=== PATIENT | male | born 1975 | race Caucasian/White ===

== ENCOUNTER 2020-04-11 17:33 | Emergency (ER) | payer MEDICAID ==
[~2020-04-11] VITALS: Ht 177.8 cm; Wt 91.2 kg
--- NOTE | 2020-04-11 17:42 | NUR ---
EKG DONE IN TRIAGE
--- NOTE | 2020-04-11 17:58 | NUR ---
[place] RN: PT C/O CHEST PAIN WHEN HE COUGHS. PT WAS TESTED FOR COVID X3 WEEKS AGO. [employer] ON. NSR NOTED. PT SEEN BY DR GARZA. NO ACUTE DISTRESS NOTED. VS STABLE. CALL LIGHT IN PLACE. REPORT GIVEN TO MICHAEL VASQUEZ
[2020-04-11 18:23] LABS: BASOPHILS % (AUTO) 0 % (0-1); EOSINOPHILS % (AUTO) 5 % (1-7); LYMPHOCYTES % (AUTO) 23 % (22-44); MEAN CORPUSCULAR HEMOGLOBIN 30.4 pg (27.5-34.5); MEAN CORPUSCULAR HGB CONC 34.2 g/dL (33.2-36.2); MEAN PLATELET VOLUME 7.9 fL (7.4-10.4); MONOCYTES % (AUTO) 8 % (2-9); NEUTROPHILS % (AUTO) 64 % (42-75); PLATELET COUNT 189 x10^3/uL (130-400); RED CELL DISTRIBUTION WIDTH 13.3 % (9.4-14.8)
[2020-04-11 18:24] LABS: MD NO
[2020-04-11] MEDS ORDERED: ALBUTEROL SULFATE 2.5 MG/3 ML NPPB ONE (18:30)
[2020-04-11 18:31] LABS: ALBUMIN 3.9 g/dL (3.4-5.0); ANION GAP 6 mmol/L (5-15); CALCIUM 8.7 mg/dL (8.5-10.1); CHLORIDE 109 mmol/L (98-107); CREATININE 1.04 mg/dL (0.7-1.3)
[2020-04-11 18:35] LABS: TROPONIN I < 0.015 ng/mL (0.000-0.045)
[2020-04-11] MEDS ORDERED: ALBUTEROL/IPRATROPIUM 2.5MG/0.5MG, 3 ML ONE (18:41)
--- NOTE | 2020-04-11 18:56 | NUR ---
REPORT RECEIVED FROM CHRISTINA RODRIGUEZ. PT RESTING ON GURNEY W/ CALL LIGHT IN REACH. CURRENTLY RECEIVING BREATHING TX. JOHN QUINTANA.
[2020-04-11 19:17] VITALS: BP 122/77
== END 2020-04-11 19:20 | disposition home or self-care (01) ==
LOC: ED 18:57
DX: J44.1 Chronic obstructive pulmonary disease with (acute) exacerbation (principal); R06.02 Shortness of breath; F17.210 Nicotine dependence, cigarettes, uncomplicated; R94.31 Abnormal electrocardiogram [ECG] [EKG]
CPT/HCPCS: 36415; 71045; 80048; 82040; 84484; 85025; 93005; 94640; 99285; 99406; J7512; J7613